=== PATIENT | female | born 1940 | race Caucasian/White ===

== ENCOUNTER → 2016-07-27 | Outpatient (CLI) | payer MEDICARE, OTHER ==
[~2016-07-27] MED LIST: BENADRYL ALLERG25 M2 PO; CELEBREX200 MG PO; CLARITIN LIQUI-10 MG PO; CRESTOR 10MG10 MG PO; LORAZEPAM0.5 M1 PO; LOSARTAN POTAS100 MG PO; MAXZIDE PO; NEURONTIN300 M1 PO; NORCO 10-325 T1 EACH PO; PREMARIN0.9 M1 PO; PROTONIX40 MG PO; RESTASIS 0.4 M0.4 ML OU; SYNTHROID0.15 MG PO; TUSSIONEX PENNKI5 ML PO
== END ==
LOC: LAB 16:56
DX: I65.29 Occlusion and stenosis of unspecified carotid artery (principal); I10 Essential (primary) hypertension; E78.2 Mixed hyperlipidemia; K90.9 Intestinal malabsorption, unspecified

== ENCOUNTER → 2016-09-05 | Outpatient (CLI) | payer MEDICARE, OTHER ==
[2015-07-06 17:15] VITALS: BP 156/74
== END ==
LOC: MAMMO 08-16 15:49
DX: Z12.31 Encounter for screening mammogram for malignant neoplasm of breast (principal)
CPT/HCPCS: G0202

== ENCOUNTER → 2016-11-28 | Outpatient (CLI) | payer MEDICARE, OTHER ==
[2015-07-06 17:15] VITALS: BP 156/74
== END ==
LOC: LAB 16:54
DX: E03.4 Atrophy of thyroid (acquired) (principal); E55.9 Vitamin D deficiency, unspecified; K90.9 Intestinal malabsorption, unspecified

== ENCOUNTER → 2017-04-27 | Outpatient (CLI) | payer MEDICARE, OTHER ==
[2015-07-06 17:15] VITALS: BP 156/74
== END ==
LOC: LAB 16:29
DX: E03.4 Atrophy of thyroid (acquired) (principal); R60.0 Localized edema

== ENCOUNTER → 2017-10-25 | Outpatient (CLI) | payer MEDICARE, OTHER ==
[2015-07-06 17:15] VITALS: BP 156/74
== END ==
LOC: RAD 16:41
DX: M19.071 Primary osteoarthritis, right ankle and foot (principal); M20.12 Hallux valgus (acquired), left foot; M21.612 Bunion of left foot

== ENCOUNTER → 2018-02-15 | Outpatient (CLI) | payer MEDICARE, OTHER ==
[2015-07-06 17:15] VITALS: BP 156/74
[2018-02-15 20:26] LABS: EOS # 0.1 (0.04-0.40); EOS % 1.6 % (1.0-5.0); HEMATOCRIT 35.7 % (37.0-47.0); HEMOGLOBIN 11.8 g/dL (12.5-16.0); LYMPH# 1.2 (1.50-4.00); MEAN CELL VOLUME 90 fl (78-100); MEAN CORPUSCULAR HEMOGLOBIN 30 pg (27-31); MEAN CORPUSCULAR HGB CONC 33 g/dL (33-37); MEAN PLATELET VOLUME 10.5 fl (7.4-10.4); MONO # 0.7 (0.20-0.80); NEU # 4.3 (1.40-6.50); PLATELET COUNT 227 K/mm3 (130-400); RED BLOOD COUNT 3.95 M/mm3 (4.10-5.30); RED CELL DISTRIBUTION WIDTH 12.9 % (11.5-14.5); WHITE BLOOD COUNT 6.3 K/mm3 (4.8-10.8)
[2018-02-15 20:28] LABS: CALCIUM 9.2 mg/dL (8.4-10.2); POTASSIUM 3.7 mmol/L (3.6-5.0); TOTAL BILIRUBIN 0.6 mg/dL (0.2-1.3); TOTAL PROTEIN 6.7 g/dL (6.3-8.2)
[2018-02-15 21:36] LABS: ERYTHROCYTE SEDIMENTATION RATE 9 mm/hr (0-30)
== END ==
LOC: LAB 16:48
PROVIDERS: Internal Medicine
DX: Z12.11 Encounter for screening for malignant neoplasm of colon (principal); I10 Essential (primary) hypertension; E78.5 Hyperlipidemia, unspecified; R73.02 Impaired glucose tolerance (oral); E03.4 Atrophy of thyroid (acquired); M85.80 Other specified disorders of bone density and structure, unspecified site; R20.2 Paresthesia of skin; E03.9 Hypothyroidism, unspecified

== ENCOUNTER → 2018-09-19 | Outpatient (CLI) | payer MEDICARE, OTHER ==
[2015-07-06 17:15] VITALS: BP 156/74
== END ==
LOC: LAB 17:31
DX: M85.80 Other specified disorders of bone density and structure, unspecified site (principal); R20.2 Paresthesia of skin

== ENCOUNTER → 2019-02-27 | Outpatient (CLI) | payer MEDICARE, OTHER ==
[2015-07-06 17:15] VITALS: BP 156/74
[2019-02-27 18:29] LABS: EOS # 0.1 (0.04-0.40); HEMATOCRIT 36.5 % (37.0-47.0); LYMPH# 1.2 (1.50-4.00); MEAN CELL VOLUME 87 fl (78-100); MEAN CORPUSCULAR HEMOGLOBIN 29 pg (27-31); MEAN CORPUSCULAR HGB CONC 33 g/dL (33-37); MEAN PLATELET VOLUME 9.9 fl (7.4-10.4); MONO # 0.6 (0.20-0.80); NEU # 4.7 (1.40-6.50); PLATELET COUNT 215 K/mm3 (130-400); RED CELL DISTRIBUTION WIDTH 12.8 % (11.5-14.5); WHITE BLOOD COUNT 6.7 K/mm3 (4.8-10.8)
[2019-02-27 18:39] LABS: POTASSIUM 3.9 mmol/L (3.5-5.1)
[2019-02-27 18:40] LABS: ALBUMIN 4.1 g/dL (3.4-4.8)
[2019-02-27 18:41] LABS: CALCIUM 9.6 mg/dL (8.3-10.5)
[2019-02-27 18:44] LABS: TOTAL BILIRUBIN 0.3 mg/dL (0.2-1.2)
[2019-02-27 19:35] LABS: ERYTHROCYTE SEDIMENTATION RATE 8 mm/hr (0-30)
== END ==
LOC: LAB 17:49
PROVIDERS: Physician Assistant
DX: Z12.11 Encounter for screening for malignant neoplasm of colon (principal); I10 Essential (primary) hypertension; E03.9 Hypothyroidism, unspecified; E78.2 Mixed hyperlipidemia; M85.80 Other specified disorders of bone density and structure, unspecified site; E74.39 Other disorders of intestinal carbohydrate absorption; R20.2 Paresthesia of skin

== ENCOUNTER → 2019-06-17 | Outpatient (CLI) | payer MEDICARE, OTHER ==
[2015-07-06 17:15] VITALS: BP 156/74
== END ==
LOC: LAB 16:44
DX: E03.9 Hypothyroidism, unspecified (principal)

== ENCOUNTER → 2019-11-07 | Outpatient (CLI) | payer MEDICARE, OTHER ==
[2015-07-06 17:15] VITALS: BP 156/74
[2019-11-07 17:45] LABS: ALBUMIN 4.3 g/dL (3.4-4.8); POTASSIUM 3.6 mmol/L (3.5-5.1)
[2019-11-07 17:46] LABS: CALCIUM 9.5 mg/dL (8.3-10.5)
[2019-11-07 17:48] LABS: TOTAL PROTEIN 7.1 g/dL (6.2-8.1)
[2019-11-07 17:49] LABS: TOTAL BILIRUBIN 0.4 mg/dL (0.2-1.2)
== END ==
LOC: LAB 16:53
PROVIDERS: Internal Medicine
DX: E11.9 Type 2 diabetes mellitus without complications (principal); M85.80 Other specified disorders of bone density and structure, unspecified site; E03.9 Hypothyroidism, unspecified; I10 Essential (primary) hypertension

== ENCOUNTER → 2019-11-25 | Outpatient (CLI) | payer MEDICARE, OTHER ==
[2015-07-06 17:15] VITALS: BP 156/74
== END ==
LOC: MAMMO 15:15
DX: Z12.31 Encounter for screening mammogram for malignant neoplasm of breast (principal)

== ENCOUNTER → 2019-11-25 | Outpatient (CLI) | payer MEDICARE, OTHER ==
[2015-07-06 17:15] VITALS: BP 156/74
== END ==
LOC: RAD 15:26 → MAMMO 16:00 → RAD 16:00
DX: Z12.31 Encounter for screening mammogram for malignant neoplasm of breast (principal); Z13.820 Encounter for screening for osteoporosis; M85.80 Other specified disorders of bone density and structure, unspecified site

== ENCOUNTER → 2020-02-13 | Outpatient (CLI) | payer MEDICARE, OTHER ==
[2015-07-06 17:15] VITALS: BP 156/74
== END ==
LOC: RAD 16:50
DX: S89.92XA Unspecified injury of left lower leg, initial encounter (principal)